=== PATIENT | female | born 1930 | race African-American/Black ===

== ENCOUNTER 2019-05-19 12:53 | Emergency (ER) | payer MEDICARE ==
[~2019-05-19] VITALS: Ht 160 cm; Wt 66.0 kg
[~2019-05-19 12:53] MED LIST: ASPI-1497 PO; ATOR10TA69 PO; LISI2.5T47 PO; METO-411 PO; OMEP20CA14 PO; TRAM50TA3 PO
[2019-05-19 16:20] LABS: CLARITY URINE CLEAR (CLEAR); COLOR URINE YELLOW (YELLOW); KETONES URINE NEGATIVE (NEGATIVE); LEUKOCYTE ESTERASE URINE NEGATIVE (NEGATIVE); NITRITE URINE NEGATIVE (NEGATIVE); OCCULT BLOOD URINE NEGATIVE (NEGATIVE); PH URINE 5.5 (4.5-8.0); PROTEIN URINE 1+ (NEGATIVE); SPECIFIC GRAVITY URINE 1.016 (1.005-1.030)
[2019-05-19 16:22] VITALS: BP 148/88
== END 2019-05-19 16:23 | disposition home or self-care (01) ==
LOC: ER 12:53
DX: M54.5 Low back pain (principal); I11.0 Hypertensive heart disease with heart failure; I50.9 Heart failure, unspecified; Z88.5 Allergy status to narcotic agent; Z88.6 Allergy status to analgesic agent; Z90.49 Acquired absence of other specified parts of digestive tract; Z90.710 Acquired absence of both cervix and uterus; Z79.82 Long term (current) use of aspirin
CPT/HCPCS: 72100; 81003; 99283